=== PATIENT | female | born 1965 | race Caucasian/White ===

== ENCOUNTER 2019-12-18 12:35 | Emergency (ER) | payer OTHER, SELFPAY ==
--- NOTE | ~2019-12-18 | XR_ITS ---
EXAMINATION: XR chest 2V DATE: 12/18/2019 14:40 INDICATION: Lightheadedness. Right arm pain. TECHNIQUE: PA and lateral views of the chest were obtained. COMPARISON: Chest radiograph dated 11/04/2014 FINDINGS: The lungs remain clear with no focal airspace opacities, pulmonary edema, pleural effusion or pneumot horax. The cardiomediastinal silhouette is normal. Mild upper thoracic dextroscoliosis. Cholecystecto my clips in the right upper quadrant. IMPRESSION: 1. No acute cardiopulmonary disease. Reviewed, dictated and finalized at location [facility].
[2019-12-18 12:37] VITALS: BP 159/91; PULSE 65; RESP 20; TEMP 37.2; O2SAT 97
--- NOTE | 2019-12-18 12:56 | ECG_ITS ---
Measurements Intervals [place] Rate: 61 P: 27 CT: 199 QRS: -21 QRSD: 114 T: 7 QT: 411 QTc: 415 Interpretive Statements SINUS RHYTHM LOW QRS VOLTAGE IN PRECORDIAL LEADS INCOMPLETE RIGHT BUNDLE BRANCH BLOCK BORDERLINE ST-T WAVE ABNORMALITY- ANTERIOR LEADS BORDERLINE ECG Electronically Signed On 12-18-2019 13:06:27 CDT by Eber Huff D.O.
--- NOTE | 2019-12-18 13:24 | ED.GENADULT ---
HPI - General Adult General Chief complaint: Unspecified Stated complaint: DIZZY Time Seen by Provider: 12/18/19 12:43 Source: patient Mode of arrival: wheelchair Limitations: no limitations History of Present Illness HPI narrative: This is a 54 year old female that presents to the ER for a pre-syncopal episode today. Reports she was at work. Reports she was having some pain to her arm around a nodule that she has had for years. Reports she started to feel nauseous due to the pain. Reports she got lightheaded. [place] like she was going to pass out. Sat down and started to feel better. Still feels mildly nauseous. Denies fever, chest pain, shortness of breath, palpitations, vision changes, vomiting, numbness or weakness. Related Data Home Medications Medication Instructions Recorded Confirmed metoprolol tartrate [Lopressor] 50 mg PO DAILY 12/18/19 12/18/19 sertraline [Zoloft] 25 mg PO DAILY 12/18/19 12/18/19 tolterodine [Detrol LA] 4 mg PO DAILY 12/18/19 12/18/19 Allergies Allergy/AdvReac Type Severity Reaction Status Date / Time No Known Allergies Allergy Verified 12/18/19 12:43 Review of Systems Review of Systems: Narrative: CONSTITUTIONAL: Denies fever EYES: Denies visual changes CARDIOVASCULAR: Denies chest pain, palpitations, or edema. GASTROINTESTINAL: Reports nausea. Denies vomiting NEUROLOGIC: Denies headache, numbness, or weakness. All systems reviewed & are unremarkable except as noted in HPI and below PMFSH Past Medical History Medical History (Updated 12/18/19 @ 15:18 by Amy Liang PA-C) History of depression History of hypertension Exam Narrative: Exam Narrative: GENERAL: Well-appearing, well-nourished, and in no acute distress. HEAD: Normocephalic, atraumatic. EYES: PERRLA and EOMI. ENT: Nares clear, no rhinorrhea or epistaxis. Mucous membranes moist. Oropharynx without tonsillar hypertrophy exudate or other lesions. Bilateral TMs pearly guzmán non-bulging NECK: Supple. No adenopathy or masses. No carotid bruits or JVD CHEST: Clear to auscultation. No respiratory distress. No wheezes rales or rhonchi HEART: Regular rate and rhythm. No murmur heard. Normal peripheral pulses. EXTREMITIES: Normal range of motion. No edema. SKIN: Warm, dry, no rash. NEURO: No focal deficits. Alert and oriented x3. Cranial nerves II through XII grossly intact. Normal [id number] PSYCH: Normal mood and affect Course Vital Signs Vital signs: Vital Signs Temperature 98.9 F 12/18/19 12:37 Pulse Rate 65 12/18/19 12:37 Respiratory Rate 20 12/18/19 12:37 Blood Pressure 159/91 H 12/18/19 12:37 Pulse Oximetry 97 12/18/19 12:37 Temperature 98.9 F 12/18/19 12:37 Pulse Rate 65 12/18/19 13:54 Respiratory Rate 20 12/18/19 12:37 Blood Pressure 141/97 H 12/18/19 13:54 Pulse Oximetry 97 12/18/19 12:37 Medical Decision Making MDM Narrative Medical decision making narrative: Patient presents to the ER for pre-syncopal episode today. Reports she was in pain started to feel nauseous and and felt like she was going to pass out. Did not lose consciousness or hit her head. Patient's vitals are stable. She is neurologically intact. CBC and metabolic panel without concerning findings. ESR and CRP are not elevated. D-dimer is not elevated. Troponin is negative. Nonspecific ST changes on EKG. Chest x-ray without acute findings. Patient reports improvement with IV fluids and Zofran. Patient is stable and felt appropriate for further outpatient evaluation. She is to follow up with her PCP. She was given warnings to return to the ER Patient reports some irritation and pain of a nodule she has had on her arm for some time. We will start her on Keflex in case she is starting to get some cellulitis in the area Vital Signs Vital Signs: Vital Signs Temperature 98.9 F 12/18/19 12:37 Pulse Rate 65 12/18/19 12:37 Respiratory Rate 20 12/18/19 12:37 Blood Pressure 159/91 H 12/18/19 12:37
[2019-12-18] MEDS: SODIUM CHLORIDE 0.9% IV 1,000 ML 999 ML IV CONT (13:32)
[2019-12-18] MEDS: ONDANSETRON INJ 4 MG/2 ML VIAL IV PUSH (13:32)
[2019-12-18 13:37] LABS: Basophils Percent Auto 0.5 % (0.2-1.2); Eosinophils Absolute Auto 0.1 K/mm3 (0-0.3); Eosinophils Percent Auto 1.8 % (0-4.4); Hematocrit 41.4 % (37.0-47.0); Hemoglobin 13.5 g/dL (12.0-15.0); Immature Granulocyte Absolute 0.02 K/mm3 (0.00-0.031); Immature Granulocyte Percent A 0.3 % (0-0.5); Lymphocytes Absolute Auto 1.64 K/mm3 (0.9-3.2); Lymphocytes Percent Auto 24.8 % (18.3-44.2); Mean Corpuscular HGB Conc 32.6 g/dl (32-36); Mean Corpuscular Hemoglobin 28.9 pg (26-34); Mean Corpuscular Volume 88.7 fl (80-100); Mean Platelet Volume 11.6 fl (7.4-10.4); Monocytes Absolute Auto 0.3 K/mm3 (0.1-0.6); Monocytes Percent Auto 4.5 % (2.6-8.5); Neutrophils Absolute Auto 4.5 K/mm3 (1.3-6.7); Neutrophils Percent Auto 68.1 % (45.5-73.1); Platelet Count Result 277 k/mm3 (150-375); Red Blood Count 4.67 M/mm3 (4.2-5.4); Red Cell Distribution Width 12.7 % (11.5-14.5); White Blood Count 6.6 K/mm3 (4.5-10.0)
[2019-12-18 13:48] LABS: Anion Gap 6 mmol/L (8-16); Blood Urea Nitrogen 22 mg/dL (7-17); CRP < 0.5 mg/dL (<1.0); Calcium 8.7 mg/dL (8.4-10.2); Carbon Dioxide 25 mmol/L (22-30); Chloride 108 mmol/L (98-107); Estimated CRCL calculation 95 ml/min; Estimated Glomerular Filt Rate > 60; Glucose 100 mg/dL (65-105); Potassium 4.1 mmol/L (3.4-5.0); Sodium 139 mmol/L (137-145)
[2019-12-18 13:52] VITALS: BP 107/54; PULSE 52
[2019-12-18 13:53] VITALS: BP 126/75; PULSE 57
[2019-12-18 13:54] VITALS: BP 141/97; PULSE 65
[2019-12-18 13:55] LABS: Troponin I < 0.012 ng/mL (0.000-0.034)
[2019-12-18 14:01] LABS: D Dimer 0.24 ug/mL (<0.48)
[2019-12-18 14:09] LABS: Erythrocyte Sedimentation Rate 9 mm/hr (0-20)
[2019-12-18 15:43] VITALS: BP 142/68; PULSE 70; RESP 20; O2SAT 99
== END 2019-12-18 15:45 | disposition home or self-care (01) ==
PROVIDERS: Physician Assistant; Emergency Provider Emergency Medicine; PCP Emergency Medicine
DX: L03.113 Cellulitis of right upper limb (principal); F32.9 Major depressive disorder, single episode, unspecified; I10 Essential (primary) hypertension
CPT/HCPCS: 36415; 71046; 80048; 84484; 85025; 85380; 85652; 86140; 93005; 96361; 96374; 96375; 99284; J0131; J2405; J7030

== ENCOUNTER 2020-04-15 14:36 | Outpatient (CLI) | payer OTHER, SELFPAY ==
--- NOTE | ~2020-04-15 | CT_ITS ---
EXAMINATION: CT chest abdomen pelvis w con DATE: 04/15/2020 15:30 INDICATION: Right upper extremity sarcoma TECHNIQUE: Computed tomography (CT) of the chest, abdomen, and pelvis was performed with 100 cc Omnip aque 350 intravenous contrast. Automated exposure control and iterative reconstruction technique were employed. Exam dose: 1288.84 mGy-cm total exam DLP. COMPARISON: 12/23/2012 CT abdomen pelvis FINDINGS: CHEST CT: There is mild discoid atelectasis or scarring at the middle lobe and lingula and left lower lobe. No pulmonary infiltrate or consolidation or pulmonary mass lesion is detected. Heart size is normal. No pericardial effusion. No thoracic aortic aneurysm. No hilar or mediastinal m ass lesion or lymphadenopathy. No pleural effusion. ABDOMEN/PELVIS CT: Status post cholecystectomy. The liver, spleen, pancreas, and adrenal glands are unremarkable. No ramiro e duct or pancreatic duct dilatation. There are multiple bilateral hypoenhancing renal lesions, most too small to definitively characterize . The largest in the right kidney measures approximately 11 mm. The largest on the left measures appr oximately 1.3 cm, stable since 12/23/2012, with probable septations. Another probable 11.4 mm lower po le left renal cyst is noted. Normal caliber of the abdominal aorta. No intraperitoneal or retroperitoneal or pelvic mass lesion or adenopathy or ascites. Normal appendix. Mild colonic diverticulosis; no CT evidence of diverticulitis. No bowel obstruction, bowel wall thickening, pneumatosis or intraperitoneal free air. The uterus and adnexa are unremarkable. The urinary bladder is relatively evacuated and unremarkable. Degenerative changes of the lower cervical spine and thoracic and to a lesser extent lumbar spine. No suspicious osteolytic or osteoblastic lesions are noted. IMPRESSION: Status post cholecystectomy Multiple probable renal cysts Mild colonic diverticulosis Reviewed, dictated and finalized at [facility]. Reviewed, dictated and finalized at location A. RMATION SERVICES MANAGER
[2020-04-15 15:16] LABS: Estimated Glomerular Filt Rate > 60
== END 2020-04-15 14:37 | disposition home or self-care (01) ==
PROVIDERS: Visit Provider Internal Medicine Hematology & Oncology
DX: C49.11 Malignant neoplasm of connective and soft tissue of right upper limb, including shoulder (principal); Z90.49 Acquired absence of other specified parts of digestive tract; K57.90 Diverticulosis of intestine, part unspecified, without perforation or abscess without bleeding
CPT/HCPCS: 71260; 74177; Q9967

== ENCOUNTER → 2020-09-15 01:40 | Outpatient (CLI) | payer OTHER, SELFPAY ==
[2020-09-15 18:55] LABS: SARS-CoV-2 RNA PCR Negative
== END ==
PROVIDERS: Visit Provider Podiatrist Foot & Ankle Surgery
DX: Z01.812 Encounter for preprocedural laboratory examination (principal); Z20.822 Contact with and (suspected) exposure to COVID-19
CPT/HCPCS: C9803; U0003; U0005

== ENCOUNTER 2020-09-18 05:49 | Day surgery (SDC) | payer OTHER, SELFPAY ==
[2020-09-10 14:16] VITALS: BMI 36.3
--- NOTE | 2020-09-17 12:04 | WPDANESEPPF ---
Anes - Initial Pre Proc Eval Procedure: Operation Date: 09/18/20 08:30 Proposed Procedures p Retro Calcaneal Exostectomy,Detachment and Reattachment of Achilles Tendon Right Foot - Kasi Phelps JR, MD Date/Time: 09/17/20 12:04 Surgeon: Kasi Phelps JR, MD Pre Op Diagnosis: achilles calcific tendinosis, right foot Patient Data Age: 55 Gender: F Height: 1.68 m Weight: 102 kg Allergies Allergy/AdvReac Type Severity Reaction Status Date / Time coflex coban AdvReac Mild Rash Uncoded 09/18/20 07:03 Home Medications Medication Instructions Recorded Confirmed Type metoprolol tartrate [Lopressor] 50 mg PO DAILY 12/18/19 09/18/20 History sertraline [Zoloft] 25 mg PO DAILY 12/18/19 09/18/20 History famotidine [Pepcid] 20 mg PO DAILY PRN 04/15/20 09/18/20 History topiramate 50 mg PO BID 04/15/20 09/18/20 History buspirone 7.5 mg PO DAILY 09/10/20 09/18/20 History diclofenac sodium 75 mg PO BID 09/10/20 09/18/20 History sumatriptan succinate 25 mg PO DAILY PRN 09/10/20 09/18/20 History Patient hx anesthesia problems: none Family hx anesthesia problems: none PMFSH Past Medical History Medical History (Updated 09/17/20 @ 12:03 by Shaun Dorsey DO) Anxiety History of depression History of hypertension IBS (irritable bowel syndrome) MVP (mitral valve prolapse) Osteoarthritis Surgical History Surgical History (Updated 09/17/20 @ 12:03 by Shaun Dorsey DO) History of cholecystectomy History of tonsillectomy History of tubal ligation Family History Family History (System 12/23/19 @ 13:56 by Pam Ramsay) Grandparent Hypertension Family history of heart disease in male family member before age 55 Diabetes mellitus Sibling Family history of diabetes mellitus in first degree relative Mother Family history of diabetes mellitus in first degree relative Social History Social History (System 12/23/19 @ 13:56 by Pam Ramsay) Smoking packs per day: 0.5 Smoking cigarettes per day: 10.0 Years smoked: 20 Smoking pack-years: 10.00 Smoking status: Former smoker Tobacco type: cigarettes Smoking end date: 05/08/12 Alcohol intake: never Substance use: never Substance use type: does not use Living arrangements: with roommate(s) Spiritual care concerns: No Anes - Eval Final PreProcedure Day of Procedure 09/17/20 12:04 Patient weight: obese Heart: regular rate and rhythm Lungs: clear to auscultation and normal air movement Airway: Mallampati scale class II Neurological: alert and oriented Last oral intake: >/= 8 hours ASA classification: III Emergent: no Anesthetic plan: proceed Anesthesia type and monitoring: general LMA and standard monitoring Informed Consent: The patient's anesthetic plan and its attendant risks and benefits were discussed with the patient/family/POA. Questions were solicited and answers provided to the satisfaction of the patient/family/POA.
[2020-09-18] VITALS (12 sets, daily range): BP systolic 107–147; BP diastolic 73–87; PULSE 67–96; RESP 12–20; TEMP 36.3–36.7; O2SAT 95–100
--- NOTE | ~2020-09-18 | XR_ITS ---
EXAMINATION: XR surgery orthopedic DATE: 09/18/2020 10:45 INDICATION: Right foot calcific tendinosis presenting for detachment and reattachment of the Achilles tendon. TECHNIQUE: A single lateral fluoroscopic spot image of the calcaneus were obtained during procedure p erformed by Dr. Phelps. Radiologist was not present for the imaging or procedure. The amount of flu oroscopy time used during this procedure was 0.2 minutes. COMPARISON: None. FINDINGS: Soft tissue defect and osteotomy at the Achilles tendon insertion at the central aspect of the musical instrument maker or repairer ior tuberosity of the calcaneus consistent with detachment of the Achilles tendon footplate. Suggesti on of a lucent suture anchor tracks at the cephalad aspect of the posterior tuberosity. Moderate-size d plantar calcaneal spur. IMPRESSION: 1. Fluoroscopy utilized during calcaneal osteotomy for detachment reattachment of the right Achilles tendon. See procedure note for further detail. Reviewed, dictated and finalized at location A.
[2020-09-18] MEDS: LACTATED RINGERS 1,000 ML 30 ML IV CONT ×2 (07:11→11:13)
--- NOTE | 2020-09-18 07:23 | WPDHPUPDATE1 ---
History and Physical Update Update Date/Time: 09/18/20 07:23 History and Physical has been reviewed, including an updated exam of the patient. There are NO changes in the patient's condition. Risks, benefits, and alternatives have been discussed and questions answered. Patient agrees to proceed with procedure.
[2020-09-18] MEDS: ceFAZolin 2 GM/D5W 50 ML 2 GM/50 ML BAG IVPB (09:06)
--- NOTE | 2020-09-18 11:23 | PM.PROC ---
Procedure Note - Detailed Date of procedure: 09/18/20 Pre-op diagnosis: achilles calcific tendinosis, right foot Post-op diagnosis: same Procedure performed: Retrocalcaneal exostectomy with detachment and reattachment of the Achilles Tendon right foot Implants: Arthrex Speed Bridge set Anesthesia: GETA and local Surgeon: Kasi Phelps JR, DPM Estimated blood loss (mL): 5 Drains: No Packing: No Pathology: none sent Complications: No immediate complications Condition: stable Disposition: same day Findings: Under mild sedation, the patient was brought to the operating room, placed on the operating table in the prone position. A pneumatic thigh tourniquet was placed about the patient's right thigh . Following general anesthesia and a proximal common peroneal and proximal tibial nerve block, the right foot and distal leg foot was then scrubbed, prepped, and draped in the usual aseptic manner. An Esmarch bandage was then used to examine the patient's right foot and pneumatic thigh tourniquet was then inflated. Surgery began in the following manner. Attention was directed to the posterior aspect of right leg where a curvilinear J shaped incision was made lateral to the retrocalcaneal exostosis which was palpable. The incision was made starting 6cm above the insertion of the Achilles and extending 3cm inferior and medial to the calcaneus. The incision was continued deep down through the subcutaneous tissues using sharp and blunt dissection. All bleeders were cauterized as necessary. At this point dissection was continued exposing the the insertional component of the Achilles Tendon. There was noted hypertrophy to the distal tendon. An incision to the distal, medial and lateral aspect of the Achilles tendon was made fully detaching the Achilles tendon. There was a large posterior and superior exostosis noted which was resected with an osteotome and mallet. All rough edges were smoothed with a power susy and bone rasp. The area was flushed with copious amounts of sterile saline Fluoroscopy was used to make sure that enough of the retrocalcaneus was resected approximately 3m from superior to inferior and medial to lateral and 2cm from posterior to anterior. Next, utilizing standard principle and techniques the Arthrex SpeedBridge system was used to reattach the debulked Achilles tendon to the posterior calcaneus. Comparable tension to the contralateral foot was maintained. Adequate stable reattachment was noted. I flushed the wound site with copious amounts of sterile saline. Next, the paretenon and overlying subcutaneus tissue was reapproximated with 3-0 Vicryl and 4-0 Vicryl correspondingly. Next, the skin was reapproximated and coapted util 4-0 Monocryl in running subcuticular suture fashion technique. Upon completion of the procedure, the incision was dressed with Adaptic, 4 x 4's, Kerlix, and Jong Wrap. The pneumatic thigh tourniquet was then deflated and a prompt hyperemic response noted to all digits of the right foot. A posterior splint was then applied. The patient did very well with the procedure and the anesthesia. He was transferred to the recovery room with vital signs stable and vascular status intact to all toes of the right foot. Following a period of postoperative monitoring, the patient will be discharged home on the following written and oral postoperative instructions: 1. Keep the dressing clean, dry, and intact. Use a cast protector bag with showers. 2. The patient to be strictly nonweightbearing with a knee scooter. 3. The patient should ice and elevate the right foot when at rest. 4. The patient to contact Dr. Phelps for all postop care and if any problems arise. 5. Prescriptions were written for Percocet 5/325 dispensed 40 to be taken 1 p.o. q.4 to 6 hours as needed for severe pain.
[2020-09-18] MEDS: fentaNYL CITRATE INJ (*CRX) 100 MCG/2 ML VIAL 25 MCG IV PUSH ×6 (11:35→12:10)
[2020-09-18] MEDS: ONDANSETRON INJ 4 MG/2 ML VIAL IV PUSH (11:39)
[2020-09-18] MEDS: oxyCODONE HCL (*CRX) 5 MG TAB IR PO (12:52)
[2020-09-18] MEDS: diphenhydrAMINE HCL ELIXIR 12.5 MG/5 ML UDC PO (13:48)
[2020-09-18] MEDS: SCOPOLAMINE 1.5 MG PATCH TRANSDERM (13:57)
== END 2020-09-18 14:00 | disposition home or self-care (01) ==
PROVIDERS: Visit Provider Podiatrist Foot & Ankle Surgery
PROC: (CPT 27650; principal; 2020-09-18 08:30)
DX: M65.271 Calcific tendinitis, right ankle and foot (principal); F41.8 Other specified anxiety disorders; I10 Essential (primary) hypertension; K58.9 Irritable bowel syndrome, unspecified; M19.90 Unspecified osteoarthritis, unspecified site; I34.1 Nonrheumatic mitral (valve) prolapse; Z87.891 Personal history of nicotine dependence; E66.9 Obesity, unspecified; Z68.33 Body mass index [BMI] 33.0-33.9, adult
CPT/HCPCS: 28118; A9270; C1713; C9290; C9803; J0330; J0461; J0690; J1100; J1200; J2250; J2370; J2405; J2704; J3010; J7120; U0003; U0005

== ENCOUNTER 2021-09-20 15:44 | Emergency (ER) | payer OTHER, SELFPAY ==
--- NOTE | ~2021-09-20 | XR_ITS ---
EXAMINATION: XR tibia fibula RT 2V DATE: 09/20/2021 16:24 INDICATION: Right lower leg injury. TECHNIQUE: 2 views of right tibia and fibula on 4 radiographs were obtained. COMPARISON: None. FINDINGS: Bone alignment is normal. No fracture. There is mild tricompartmental osteoarthritis of rig ht knee. There are enthesophytes at the posterior and plantar aspects of calcaneal tuberosity. There is soft tissue swelling in the area of the Achilles tendon insertion on the calcaneus, consistent wit h Karl deformity. IMPRESSION: 1. Mild right knee osteoarthritis. 2. Karl deformity. Reviewed, dictated and finalized at location B.
[2021-09-20 16:00] VITALS: BP 132/62; PULSE 93; RESP 16; TEMP 37.4; O2SAT 100
--- NOTE | 2021-09-20 16:18 | ED.LOWEXIN ---
HPI - Extremity Injury (Lower) General Chief Complaint: Extremity Injury, Lower Stated Complaint: right ankle injury Time Seen by Provider: 09/20/21 16:12 Source: patient and RN notes reviewed Mode of arrival: ambulatory Limitations: no limitations History of Present Illness HPI Narrative: 56-year-old female presents with concern for injury to her right ankle. Reports 3 days ago she was at work when a large heavy glass door slid off the track and fell onto her lower leg. She reports pain, bruising. Reports it is worsened today. She reports working long hours on her feet makes the pain worse. She reports burning when her clothes rub against the leg. MD complaint: leg injury Related Data Home Medications Medication Instructions Recorded Confirmed metoprolol tartrate [Lopressor] 50 mg PO DAILY 12/18/19 09/20/21 sertraline [Zoloft] 25 mg PO DAILY 12/18/19 09/20/21 famotidine [Pepcid] 20 mg PO DAILY PRN 04/15/20 09/20/21 topiramate 50 mg PO BID 04/15/20 09/20/21 buspirone 7.5 mg PO DAILY 09/10/20 09/20/21 diclofenac sodium 75 mg PO BID 09/10/20 09/20/21 sumatriptan succinate 25 mg PO DAILY PRN 09/10/20 09/20/21 Allergies Allergy/AdvReac Type Severity Reaction Status Date / Time coflex coban AdvReac Mild Rash Uncoded 09/20/21 16:06 Review of Systems Review of Systems: CONSTITUTIONAL: Denies malaise, chills, sweats, or fever. SKIN: Denies rash or itching, open skin, laceration, abrasion, redness, warmth, swelling. MUSCULOSKELETAL: Reports right lower leg pain and bruising NEUROLOGIC: Denies numbness, weakness All systems reviewed & are unremarkable except as noted in HPI and below PMFSH Past Medical History Medical History (Updated 09/20/21 @ 16:49 by Janny Melo NP) Anxiety History of depression History of hypertension IBS (irritable bowel syndrome) MVP (mitral valve prolapse) Osteoarthritis Surgical History Surgical History (Updated 09/17/20 @ 12:03 by Shaun Dorsey DO) History of cholecystectomy History of tonsillectomy History of tubal ligation Family History Family History (System 12/23/19 @ 13:56 by Pam Ramsay) Grandparent Hypertension Family history of heart disease in male family member before age 55 Diabetes mellitus Sibling Family history of diabetes mellitus in first degree relative Mother Family history of diabetes mellitus in first degree relative Social History Social History (System 12/23/19 @ 13:56 by Pam Ramsay) Smoking packs per day: 0.5 Smoking cigarettes per day: 10.0 Years smoked: 20 Smoking pack-years: 10.00 Smoking status: Former smoker Tobacco type: cigarettes Smoking end date: 05/08/12 Alcohol intake: never Substance use: never Substance use type: does not use Spiritual care concerns: No Comments At time of signature, agree with nursing past medical, surgical, social and family history. There is no relevant family history pertinent to the presenting complaint Exam Narrative: GENERAL: Well-appearing, well-nourished, and in no acute distress. HEAD: Normocephalic, atraumatic. EYES: PERRLA, conjunctivae clear NECK: Supple. CHEST: Speaks in full sentences. No respiratory distress. HEART: Regular rate and rhythm. Normal and equal peripheral pulses. EXTREMITIES: Right lower extremity has normal strength and sensation, limited range of motion. Moderate circumferential edema and ecchymosis. 5/5 strength with ankle and digit flexion and extension. Normal sensation with sensitivity to light touch and pain. Anterior lower leg tenderness. No open wounds, no skin tenting, no devitalized tissue or atrophy, no trophic changes, no obvious deformity, alignment normal, nearby joints and structures intact. Distal pulses palpable and equal bilaterally, skin warm, dry, pink. Capillary refill less than 3 seconds. SKIN: Warm, dry, no rash. NEURO: Alert and oriented x3. PSYCH: Normal mood and affect Course Course Emergency Co
== END 2021-09-20 16:50 | disposition home or self-care (01) ==
PROVIDERS: Emergency Provider Nurse Practitioner
DX: S80.11XA Contusion of right lower leg, initial encounter (principal); W20.8XXA Other cause of strike by thrown, projected or falling object, initial encounter; Y99.0 Civilian activity done for income or pay; Z87.891 Personal history of nicotine dependence; I10 Essential (primary) hypertension; I34.1 Nonrheumatic mitral (valve) prolapse; M19.90 Unspecified osteoarthritis, unspecified site; F41.9 Anxiety disorder, unspecified; F32.A Depression, unspecified
CPT/HCPCS: 73590; 99213; G0463